=== PATIENT | male | born 1985 | race Caucasian/White ===

== ENCOUNTER 2024-11-28 02:54 | Emergency (ER) | payer OTHER ==
[~2024-11-28] VITALS: Ht 175.3 cm; Wt 95.3 kg
[2024-11-28 06:00] VITALS: BP 145/84; TEMP 98.7; O2SAT 98
== END 2024-11-28 06:00 | disposition home or self-care (01) ==
LOC: ER 03:01
DX: S62.336A Displaced fracture of neck of fifth metacarpal bone, right hand, initial encounter for closed fracture (principal); S62.396A Other fracture of fifth metacarpal bone, right hand, initial encounter for closed fracture; W22.01XA Walked into wall, initial encounter; Y93.89 Activity, other specified; Y92.89 Other specified places as the place of occurrence of the external cause; Y99.8 Other external cause status
CPT/HCPCS: 73130; A4606; A4663